=== PATIENT | male | born 1955 | race Caucasian/White ===

== ENCOUNTER 2021-10-27 09:25 | Emergency (ER) | payer MEDICARE, OTHER ==
[~2021-10-27] VITALS: Ht 177.8 cm; Wt 75.0 kg
[2021-10-27 09:31] VITALS: TEMP 97.3
[2021-10-27 10:00] VITALS: PULSE 55
[2021-10-27 10:40] VITALS: BP 153/87
== END 2021-10-27 10:42 | disposition home or self-care (01) ==
LOC: COL.ER 09:25
DX: S61.441A Puncture wound with foreign body of right hand, initial encounter (principal); W26.0XXA Contact with knife, initial encounter

== ENCOUNTER → 2021-11-09 | Outpatient (CLI) | payer MEDICARE, OTHER ==
[2021-11-09 14:55] VITALS: BP 184/91; PULSE 67; TEMP 96
== END ==
LOC: COL.ER 14:48
DX: Z48.02 Encounter for removal of sutures (principal)

== ENCOUNTER 2023-10-25 06:53 | Day surgery (SDC) | payer MEDICARE, OTHER ==
[~2023-10-25] VITALS: Ht 177.8 cm; Wt 73.2 kg
[2023-10-25] VITALS (18 sets, daily range): BP systolic 85–175; BP diastolic 53–111; PULSE 46–77; TEMP 97.8–98.4
[~2023-10-25 06:53] MED LIST: NORCO 325 MG-51 TAB PO; PRINIVIL5 MG PO; PROSVENT PO; WELLBUTRIN SR150 M1 PO
[2023-10-25] MEDS ORDERED: 1/2 NS 1,000 ML IV SCH ×2 (07:45→11:45)
[2023-10-25 08:12] LABS: CALCIUM 10.1 mg/dL (8.4-10.2); CREATININE, serum 1.11 mg/dL (0.72-1.25); HEMATOCRIT 42.5 % (42.0-52.0); HEMOGLOBIN 14.3 g/dl (13.5-18.0); MEAN CELL VOLUME 85 fl (80.0-100.0); MEAN CORPUSCULAR HEMOGLOBIN 29 pg (27-31); MEAN CORPUSCULAR HGB CONC 34 g/dl (33.0-37.0); MEAN PLATELET VOLUME 9.4 fl (7.4-10.4); PLATELET COUNT 262 K/mm3 (130-400); POTASSIUM 4.2 mEq/L (3.5-4.5); RED BLOOD COUNT 5.02 M/mm3 (4.20-5.60); REDCELL DISTRIBUTION WIDTH-CV 13.2 % (11.5-14.5)
[2023-10-25] MEDS ORDERED: XANAX .25M0.25 MG/TA PO (08:16)
[2023-10-25] MEDS ORDERED: WELLBUTRIN SR150 M1 PO (08:17)
[2023-10-25] MEDS ORDERED: ZESTRIL 5MG5 MG PO (08:17)
[2023-10-25] MEDS ORDERED: PEPCID AC 10MG10 MG PO (08:18)
[2023-10-25] MEDS ORDERED: ASPIRIN 81M81 MG/TA2 PO (08:18)
[2023-10-25 08:20] LABS: INR 1.1 (0.8-3.0); PROTHROMBIN TIME 11.5 SECONDS (9.7-12.8)
[2023-10-25] MEDS ORDERED: NITROSTAT0.4 MG/TAB SL (08:20)
[2023-10-25 08:23] LABS: PARTIAL THROMBOPLASTIN TIME 33.4 SECONDS (26.0-37.0)
--- NOTE | 2023-10-25 09:12 | NUR ---
SEE MERGE FOR PROCEDURE DOCUMENTATION
[2023-10-25] MEDS ORDERED: Nitroglycerin 2% Topical Oint 1 GM UD TD SCH (09:22)
[2023-10-25] MEDS ORDERED: Heparin 1,000 UNITS/ML 10 ML Multi-Dose VIAL IV SCH (09:31)
[2023-10-25] MEDS ORDERED: Clopidogrel 300 MG DOSE (75 mg x 4 tabs) PO SCH (09:42)
[2023-10-25] MEDS ORDERED: niCARdipine (Cath Lab) 100 MCG/ML 10 ML VIAL IA SCH (09:54)
[2023-10-25] MEDS ORDERED: Midazolam 2 MG/2 ML VIAL IV SCH (09:54)
[2023-10-25] MEDS ORDERED: fentaNYL 50 MCG/ML 2 ML VIAL IV SCH (09:55)
--- NOTE | 2023-10-25 10:11 | NUR ---
Report received pt to transfer to inpt room.
[2023-10-25] MEDS ORDERED: Bivalirudin 250 MG in NS 50 ML IV SCH ×2 (10:36→10:55)
--- NOTE | 2023-10-25 10:36 | NUR ---
Initial visit; Patient and his ; Janae thanked Special Library Librarian for looking in on him prior to his 'Procedure" and offering prayer for a rapid and thorough recovery from his Heart Catherization. spoke of his Physician and made sure he knew he was in very good hands and that he would do well.
[2023-10-25] MEDS ORDERED: Iohexol 350 - 100 ML VIAL INCOR ONE (11:32)
[2023-10-25] MEDS ORDERED: ALPRAZolam 0.25 MG TAB PO PRN (12:00)
[2023-10-25] MEDS ORDERED: Temazepam 15 MG CAP PO PRN (12:00)
--- NOTE | 2023-10-25 12:07 | NUR ---
PT ALERT AND ORIENTED, REPORTS "FLOATERS" IN MY EYES. DENIES PAIN. RIGHT FOREARM NOTED TO HAVE SMALL COMPRESSABLE AREA, PRESSURE HELD AND COBAN PLACED PER ENZO MOYER FRAME ALIGNER. PROVIDER MADE AWARE. PATIENT TRANSFERRED TO BED AND TRANSPORTED TO [facility]. SPOUSE BROUGHT TO BEDSIDE. VITAL SIGNS TAKEN ON ARRIVAL, HYPERTENSION NOTED PER BASELINE. TRANSFER OF CARE TO JANIYA ELLIS RN. PATIENT PROVIDED CALL LIGHT AND URINAL, BED TO LOWEST POSITION, X3 BEDRAILS IN PLACE. ANGIOMAX DRIP TO CONTINUE UNTIL CURRENT BAG COMPLETE.
[2023-10-25] MEDS ORDERED: Famotidine 20 MG TAB PO PRN (12:15)
[2023-10-25] MEDS ORDERED: Docusate Sodium 100 MG CAP PO PRN (12:45)
--- NOTE | 2023-10-25 12:51 | NUR ---
Patient trasnferred from laboratory apparatus glass grinder to unit at approx 1145. Patient alert and oriented x4, denies pain. at bedside. BP elevated, but has been elevated since procedure per MAITE Scott. Right radial site is reddened and upper arm area is swollen, per report patient had a "knot" in the area and laboratory apparatus glass grinder staff wrapped arm in coban. CMS normal, no hematoma or bleeding noted. Patient requested to use urinal and was able to stand at bedside and use urinal with left hand. Stable on room air, tolerating water well. Call light within reach.
[2023-10-25] MEDS ORDERED: DOPamine/Dextrose 5%-Water 250 ML IV SCH (16:00)
[2023-10-25] MEDS ORDERED: 1/2 NS 500 ML IV SCH (16:45)
--- NOTE | 2023-10-25 18:26 | NUR ---
Patient called this nurse between 1530 and 1600 to notify this nurse that he did not feel well. Upon entering room patient was laying in bed with his fanning him, states he felt hot. Patient was cold and clammy to touch, BP noted to be 85/53 on vital signs machine that was cycling for post-op VS. medical csr called this nurse to notify of HR of 46 that was sustaining. Patient complained of light headedness and appeared pale. These symptoms occurred after all air was released from TR band to right radial site. Prior to releasing air from radial band patient was complaining of pain to site. CMS was consistently within normal limits. Small amount of blood noted to right radial site, 6cc of air re-inflated back into radial band. Dr. Price updated on patient's symptoms and 500ml bolus of 1/2 NS ordered as well as a dose of IV dopamine. Bolus administered and BP noted to increase gradually, HR increased to 50s. No further bleeding noted to right radial site. This nurse was clarifying medication administration policies for Dopamine with supervisor prop making, then when reassessing patient BP noted to have increased close to baseline in 140s/70s and HR was back to 60s. Dr. Price notified of change in VS and stated to not give Dopamine anymore due to VS stabilizing. Patient remained alert and oriented x4 throughout all of symptoms, bleeding to radial site stopped. After 40 min 6cc of air removed, no further bleeding noted when reassessing 10 minutes later. Band removed and bandaid applied to site.
--- NOTE | 2023-10-25 19:24 | NUR ---
SHIFT ASSESSMENT COMPLETE AT TIME OF TRANSFER FROM ASSOCIATE PROFESSOR OF PSYCHOLOGY AT 1147
[2023-10-25] MEDS ORDERED: Atorvastatin 80 MG TAB PO SCH (21:00)
[2023-10-26] VITALS: BP 119/59; PULSE 52; TEMP 97.9
--- NOTE | 2023-10-26 01:57 | NUR ---
PATIENT BRADYCARDIC AT 47BPM. ENTERED PATIENT ROOM, PATIENT SLEEPING AND WAS EASILY AROUSED. VS RECHECKED BP 107/69, PULSE 51 AND 02 AT 97 % ON RA. PATIENT DENIES CHEST PAIN OR SOA. RT RADIAL SITE DRESSING CDI AND DIST PULSE PALPABLE. APICAL PULSE 52 BPM.
[2023-10-26 03:56] VITALS: BP 123/78; PULSE 51; TEMP 97.9
[2023-10-26 04:45] LABS: BASO % 0.2 % (0.0-2.0); EOS # 0.2 K/mm3 (0.0-0.7); EOS % 2.1 % (0.0-4.0); GRAN # 5.9 K/mm3 (1.4-6.5); GRAN % 69.7 % (42.2-75.2); HEMATOCRIT 38.4 % (42.0-52.0); LYMPH # 1.4 K/mm3 (1.2-3.4); LYMPH % 16.3 % (20.0-51.0); MEAN CELL VOLUME 85 fl (80.0-100.0); MEAN CORPUSCULAR HEMOGLOBIN 29 pg (27-31); MEAN CORPUSCULAR HGB CONC 34 g/dl (33.0-37.0); MEAN PLATELET VOLUME 9.5 fl (7.4-10.4); MONO % 11.3 % (1.7-9.3); PLATELET COUNT 250 K/mm3 (130-400); RED BLOOD COUNT 4.53 M/mm3 (4.20-5.60); REDCELL DISTRIBUTION WIDTH-CV 13.2 % (11.5-14.5)
[2023-10-26 05:00] LABS: CREATININE, serum 1.06 mg/dL (0.72-1.25)
--- NOTE | 2023-10-26 06:41 | NUR ---
PATIENT SLEPT SOUNDLY THROUGHOUT THE NIGHT WITH NO EMERGENT STATUS CHANGES. PATIENT REMAINS SLIGHTLY BRADYCARDIC AT 56 BPM. DENIES CHEST PAIN OR SOA. STATES NO NEEDS AT THIS TIME.
[2023-10-26 07:13] VITALS: BP 129/77; PULSE 55; TEMP 97.9
[2023-10-26] MEDS ORDERED: Lisinopril 5 MG TAB PO SCH (09:00)
[2023-10-26] MEDS ORDERED: buPROPion SR (12-HR) 150 MG TAB PO SCH (09:00)
[2023-10-26] MEDS ORDERED: Clopidogrel 75 MG TAB PO SCH (09:00)
[2023-10-26 09:50] VITALS: BP_SYST 129
--- NOTE | 2023-10-26 09:50 | NUR ---
PT LAYING IN BED UPON ENTERING, AND DIETARY AT BEDSIDE. ASSESSMENT DONE, MEDS GIVEN. PHARMACY CALLED FOR ORDERED WELLBUTRIN SR NOT IN PYXIS. TOPROL HELD THIS MORNING PER CARDIOLOGY. PT DENIES PAIN. INT TO LEFT FOREARM PATENT. BANDAID REMOVED FROM RIGHT RADIAL SITE, NO BLEEDING NOTED. PT DENIES NEEDS. BED IN LOWEST POSITION, CALL LIGHT IN REACH.
[2023-10-26] MEDS ORDERED: LIPITOR 80MG80 MG PO (11:14)
[2023-10-26] MEDS ORDERED: PLAVIX 75MG TAB75 MG PO (11:14)
[2023-10-26] MEDS ORDERED: TOPROL XL 25MG25 MG PO (11:15)
[2023-10-26] MEDS ORDERED: EPA FISH OIL1 SGL PO (11:16)
[2023-10-26 11:29] VITALS: BP 127/77; PULSE 56; TEMP 97.3
--- NOTE | 2023-10-26 12:01 | NUR ---
Reviewed monitoring instructions for s/p radial heart catherization. Cleaning site with mild soap and water, pat dry. Discussed monitoring for redness, hot to touch, inflammation, or temperature >100.4. Discussed when to contact the physician for signs of symptoms of complications or CA. Also reviewed risk factors for heart disease. Covered applicable modifiable risk factors including the following: tobacco cessation, HTN, hyperlipidemia, diabetes, overweight/obesity, sedentary lifestyle, and stress/depression. Patient verbalized understanding. Referral sent to [facility] with patient's permission. Patient would like to attend f/u with [facility] cardiology prior to scheduling. Patient provided with depatment contact information and states he will call to schedule.
--- NOTE | 2023-10-26 12:10 | NUR ---
IV AND TELE REMOVED. PT GIVEN DISCHARGE INSTRUCTIONS AND VERBALIZED UNDERSTANDING. PT IN PERSONAL CLOTHES AND ESCORTED TO PERSONAL VEHICLE VIA WHEELCHAIR BY PCT
--- NOTE | 2023-10-26 13:19 | NUR ---
Follow-up visit; Patient doing well after being treated for complications yesterday along with undergoing a Heart Catherization. Lump Machine Operator wished him well, a thorough and rapid recovery as he leaves the hospital today. Patient and his thanked Lump Machine Operator for stopping again.
== END 2023-10-26 12:30 | disposition home or self-care (01) ==
LOC: COL.CAR 06:53 → MEDICAL 11:45 → COL.CAR 10-26 12:30 → MEDICAL 10-26 12:30
PROVIDERS: Internal Medicine Cardiovascular Disease
DX: I25.10 Atherosclerotic heart disease of native coronary artery without angina pectoris (principal); Z95.5 Presence of coronary angioplasty implant and graft
CPT/HCPCS: OP; C1725; C1769; C1874; C1887; C9600; J0583; J1644; J2250; J2404; J3010; Q9967

== ENCOUNTER 2024-01-22 08:23 | Observation (INO) | payer MEDICARE, OTHER ==
[2024-01-22] VITALS (164 sets, daily range): BP systolic 106–173; BP diastolic 61–88; PULSE 49–72; TEMP 98–98.7; O2SAT 96–100
[~2024-01-22] VITALS: Ht 180.3 cm; Wt 73.7 kg
[~2024-01-22 08:23] MED LIST changes: +ASPIRIN 81M81 MG/TA2 PO; +EPA FISH OIL1 SGL PO; +LIPITOR 80MG80 MG PO; +NITROSTAT0.4 MG/TAB SL; +PEPCID AC 10MG10 MG PO; +PLAVIX 75MG TAB75 MG PO; +TOPROL XL 25MG25 MG PO; +XANAX .25M0.25 MG/TA PO; +ZESTRIL 5MG5 MG PO
[2024-01-22 08:59] LABS: BASO % 0.3 % (0.0-2.0); EOS # 0.2 K/mm3 (0.0-0.7); EOS % 3.3 % (0.0-4.0); GRAN # 3.1 K/mm3 (1.4-6.5); GRAN % 44.4 % (42.2-75.2); HEMATOCRIT 41.5 % (42.0-52.0); LYMPH # 2.7 K/mm3 (1.2-3.4); LYMPH % 38.5 % (20.0-51.0); MEAN CELL VOLUME 88 fl (80.0-100.0); MEAN CORPUSCULAR HEMOGLOBIN 27 pg (27-31); MEAN CORPUSCULAR HGB CONC 31 g/dl (33.0-37.0); MEAN PLATELET VOLUME 9.7 fl (7.4-10.4); MONO # 0.9 K/mm3 (0.1-0.6); MONO % 13.2 % (1.7-9.3); PLATELET COUNT 284 K/mm3 (130-400); RED BLOOD COUNT 4.74 M/mm3 (4.20-5.60); REDCELL DISTRIBUTION WIDTH-CV 14.4 % (11.5-14.5)
[2024-01-22 09:12] LABS: ALBUMIN 3.8 g/dL (3.4-4.8); CALCIUM 8.8 mg/dL (8.4-10.2); CREATININE, serum 1.16 mg/dL (0.72-1.25); POTASSIUM 4.5 mEq/L (3.5-4.5); TOTAL PROTEIN 6.4 g/dl (6.2-8.1)
[2024-01-22 09:38] LABS: BILIRUBIN,TOTAL 0.6 mg/dL (0.2-1.2)
[2024-01-22 09:47] LABS: TROPONIN-I 0.097 ng/mL (0.00-0.033)
[2024-01-22] MEDS ORDERED: 1/2 NS 1,000 ML IV SCH ×2 (10:15→17:15)
[2024-01-22] MEDS ORDERED: Acetaminophen 325 MG TAB PO PRN (11:00)
[2024-01-22] MEDS ORDERED: LR 1,000 ML IV SCH (11:00)
[2024-01-22] MEDS ORDERED: Polyethylene Glycol 3350 17 GM PDS PO PRN (11:00)
[2024-01-22] MEDS ORDERED: Ondansetron 4 MG/2 ML VIAL IV PRN (11:00)
[2024-01-22] MEDS ORDERED: Docusate Sodium 100 MG CAP PO PRN (11:00)
[2024-01-22] MEDS ORDERED: hydrALAZINE 20 MG/ML 1 ML VIAL IV PRN (11:15)
[2024-01-22] MEDS ORDERED: Nitroglycerin 2% Topical Oint 1 GM UD TD SCH (13:22)
[2024-01-22] MEDS ORDERED: ALPRAZolam 0.5 MG TAB PO PRN (14:15)
[2024-01-22] MEDS ORDERED: Bivalirudin 250 MG in NS 50 ML IV SCH ×2 (15:01→15:38)
[2024-01-22] MEDS ORDERED: Midazolam 2 MG/2 ML VIAL IV SCH (15:02)
[2024-01-22] MEDS ORDERED: fentaNYL 50 MCG/ML 2 ML VIAL IV SCH (15:03)
[2024-01-22] MEDS ORDERED: niCARdipine (Cath Lab) 100 MCG/ML 10 ML VIAL INCOR SCH (15:12)
[2024-01-22] MEDS ORDERED: Nitroglycerin 100 MCG/ML (Cath Lab) 10 ML VIAL IA SCH (15:13)
[2024-01-22] MEDS ORDERED: Iohexol 350 - 100 ML VIAL IA ONE (15:14)
[2024-01-22] MEDS ORDERED: Ticagrelor 90 MG TAB PO SCH ×2 (15:21→21:00)
[2024-01-22] MEDS ORDERED: Heparin 5,000 UNITS/ML 1 ML VIAL SQ SCH (16:00)
--- NOTE | 2024-01-22 17:33 | NUR ---
PT ARRIVED FROM OIL WINTERIZER WITH OIL WINTERIZER RN. UPPON SITE CHECK SITE NOTED TO BE ACTIVLY BLEEDING. MANUAL COMPRESSION APPLIED BY OIL WINTERIZER STAFF FOR 20 MIN UNTILL BLEEDING STOPPED.
--- NOTE | 2024-01-22 17:37 | NUR ---
SITE STILL BLEEDING CATHLAB STAFF HOLDING PRESSURE
--- NOTE | 2024-01-22 17:48 | NUR ---
ACTIVE BLEEDINGT STOPPED AND NEW BANDAGE APPLIED SCANT BLOOD ON NEW BANDAGE
[2024-01-22] MEDS ORDERED: amLODIPine 5 MG TAB PO SCH (21:00)
[2024-01-22] MEDS ORDERED: Atorvastatin 80 MG TAB PO SCH (21:00)
--- NOTE | 2024-01-22 23:50 | NUR ---
PATIENT A&OX4, PLEASANT, AND COOPERATIVE WITH TREATMENT PLAN. PATIENTS FEMORAL ACCESS SITE HAD BLOODY DRAINAGE ON THE GAUZE. THIS WAS MARKED WITH SHAY AND RECHECKED 45 MINS LATER. DRAINAGE CONTINUED AND THE STAINING HAD PASSED THE ORIGINAL WYATT. PRESSURE HELD AT SITE FOR 20 MINS AND REMARKED. AT THIS TIME THE DRAINAGE HAS NOT GONE PAST THE 2ND WYATT THAT WAS MADE. PATIENT IN BED CALL LIGHT IN REACH
[2024-01-23] VITALS (95 sets, daily range): BP systolic 113–143; BP diastolic 61–82; PULSE 54–66; TEMP 98–98.1; O2SAT 87–100
[2024-01-23 04:54] LABS: BASO % 0.1 % (0.0-2.0); EOS # 0.1 K/mm3 (0.0-0.7); EOS % 1.3 % (0.0-4.0); GRAN # 5.2 K/mm3 (1.4-6.5); GRAN % 69.8 % (42.2-75.2); HEMOGLOBIN 11.1 g/dl (13.5-18.0); LYMPH # 1.2 K/mm3 (1.2-3.4); LYMPH % 15.8 % (20.0-51.0); MEAN CORPUSCULAR HEMOGLOBIN 28 pg (27-31); MEAN CORPUSCULAR HGB CONC 33 g/dl (33.0-37.0); MEAN PLATELET VOLUME 9.4 fl (7.4-10.4); MONO # 0.9 K/mm3 (0.1-0.6); MONO % 12.7 % (1.7-9.3); PLATELET COUNT 204 K/mm3 (130-400); REDCELL DISTRIBUTION WIDTH-CV 14.4 % (11.5-14.5)
[2024-01-23 04:56] LABS: HEMATOCRIT 33.3 % (42.0-52.0); MEAN CELL VOLUME 83 fl (80.0-100.0)
[2024-01-23 05:17] LABS: CALCIUM 8.3 mg/dL (8.4-10.2); CREATININE, serum 0.93 mg/dL (0.72-1.25)
--- NOTE | 2024-01-23 07:55 | NUR ---
PT IS AWAKE IN THE BED ON HIS PHONE. PONCHO AND Johnny CHECKED THE PATIENTS GROIN SITE AND THE BLOOD HAS NOT ADVANCED PASSED THE LINE DRAWN ON THE DRESSING FROM THE PREVIOUS EVENING. HE IS ALERT AND ORIENTED. HE HAS BEEN GETTING UP TO USE THE TOILET TWICE THIS AM. NO OXYGEN IN PLACE. HE WAS GIVEN THE PHONE SO HE CAN ORDER HIS BREAKFAST. HE HAS ONE IV IN PLACE WITH FLUIDS INFUSING. NO PLAIN COMPLAINTS AT THIS TIME.
[2024-01-23] MEDS ORDERED: buPROPion SR (12-HR) 150 MG TAB PO SCH (09:00)
[2024-01-23] MEDS ORDERED: Pantoprazole 40 MG in NS 10 ML IV SCH (09:00)
[2024-01-23] MEDS ORDERED: Lisinopril 5 MG TAB PO SCH (09:00)
[2024-01-23] MEDS ORDERED: Omega-3 Fatty Acid Esters (OTC) 1,000 MG CAP PO SCH (09:00)
[2024-01-23] MEDS ORDERED: Clopidogrel 75 MG TAB PO SCH (09:00)
--- NOTE | 2024-01-23 10:07 | NUR ---
Metal Bed Assembler met with patient to discuss discharge planning. Patient lives in [place] with his spouse, Janae (ph#[phone]) who is at bedside. Patient sees Dr. Sandoval for primary care and gets medications from [facility] with no difficulties at this time. Patient does not use any DME and is independent with ADLS. Patient reported he has DPOA-HC completed and located at [facility]. SW contacted JA Veliz at [facility] and secured a copy which was placed on patient's chart. DPOA-HC designates his , Jewell "Janae". Discharge Plan: Home
[2024-01-23] MEDS ORDERED: BRILINTA90 MG PO (11:25)
[2024-01-23] MEDS ORDERED: NORVASC 5MG5 MG/TAB PO (11:26)
[2024-01-23] MEDS ORDERED: TOPROL XL 25MG25 MG PO (11:30)
--- NOTE | 2024-01-23 12:25 | NUR ---
Reviewed returning to cardiac rehab - Dr. Price has requested 2 week pause. Staff will check into insurance coverage and 'restarting' to have a few more sessions to monitor patient during exercise. Patient verbalized understanding. Staff will call in approx 1 week to check in and schedule return.
--- NOTE | 2024-01-23 12:42 | NUR ---
DISCUSSED DISCHARGE PAPERWORK WITH THE PATIENT AND HIS SPOUSE. HIS IV WAS DISCONTINUED. HE REMAINS ON ROOM AIR. HE IS VOIDING APPROPRIATELY. HE HAS NO COMPLAINTS OF PAIN. THE RIGHT GROIN SITE WAS VISUALIZED BY THIS NURSE AND THE PATIENT AND A CLEAN DRESSING WAS APPLIED. INSTRUCTIONS WERE GIVEN TO THE PATIENT AND HIS IN CASE THE SITE WOULD START TO REBLEED. HE WAS WHEELED OUT IN A WHEELCHAIR BY THIS NURSE TO HIS WAITING IN THE CAR.
== END 2024-01-23 12:29 | disposition home or self-care (01) ==
LOC: COL.ER 08:23 → ICU 11:01
PROVIDERS: Personal Emergency Response Attendant; ADMIT Internal Medicine
DX: I47.21 Torsades de pointes (principal); I46.9 Cardiac arrest, cause unspecified; T82.867A Thrombosis due to cardiac prosthetic devices, implants and grafts, initial encounter; R79.89 Other specified abnormal findings of blood chemistry; S01.81XA Laceration without foreign body of other part of head, initial encounter; R55 Syncope and collapse; I10 Essential (primary) hypertension; E78.5 Hyperlipidemia, unspecified; F41.9 Anxiety disorder, unspecified; F32.A Depression, unspecified; I21.4 Non-ST elevation (NSTEMI) myocardial infarction; Z95.5 Presence of coronary angioplasty implant and graft; Z79.82 Long term (current) use of aspirin; Z79.02 Long term (current) use of antithrombotics/antiplatelets
CPT/HCPCS: G0378; J0583; J1644; J2250; J2404; J2470; J3010; Q9967

== ENCOUNTER 2024-02-09 13:42 | Outpatient (RCR) | payer MEDICARE, OTHER ==
[2024-01-22 16:21] VITALS: O2SAT 97
[2024-01-27 11:21] VITALS: BP 161/88; PULSE 69; TEMP 98.1
[~2024-02-09 13:42] MED LIST changes: +BRILINTA90 MG PO; +NORVASC 5MG5 MG/TAB PO
[2024-03-01] MEDS ORDERED: LIPITOR 80MG80 MG PO (10:46)
[2024-03-01] MEDS ORDERED: BRILINTA90 MG PO (10:46)
[2024-03-01] MEDS ORDERED: TOPROL XL 25MG25 MG PO (10:46)
[2024-03-01] MEDS ORDERED: NORVASC 5MG5 MG/TAB PO (10:46)
[2024-03-01] MEDS ORDERED: ELIQUIS 5MG PO (10:47)
[2024-03-01] MEDS ORDERED: EPA FISH OIL1 SGL PO (10:47)
[2024-03-01] MEDS ORDERED: PROTONIX 40MG T40 MG PO (10:48)
== END 2024-03-07 | disposition home or self-care (01) ==
LOC: COL.CR
DX: Z02.89 Encounter for other administrative examinations (principal)

== ENCOUNTER 2024-02-12 10:18 | Emergency (ER) | payer MEDICARE, OTHER ==
[~2024-02-12] VITALS: Ht 177.8 cm; Wt 71.4 kg
[2024-02-12 10:40] LABS: BASO % 0.4 % (0.0-2.0); EOS # 0.1 K/mm3 (0.0-0.7); EOS % 1.5 % (0.0-4.0); GRAN # 5.9 K/mm3 (1.4-6.5); GRAN % 71.6 % (42.2-75.2); LYMPH # 1.3 K/mm3 (1.2-3.4); LYMPH % 15.3 % (20.0-51.0); MEAN CELL VOLUME 88 fl (80.0-100.0); MEAN CORPUSCULAR HGB CONC 31 g/dl (33.0-37.0); MEAN PLATELET VOLUME 9.4 fl (7.4-10.4); MONO # 0.9 K/mm3 (0.1-0.6); MONO % 10.6 % (1.7-9.3); PLATELET COUNT 331 K/mm3 (130-400); RED BLOOD COUNT 3.41 M/mm3 (4.20-5.60)
[2024-02-12 10:43] LABS: HEMOGLOBIN 9.4 g/dl (13.5-18.0); MEAN CORPUSCULAR HEMOGLOBIN 28 pg (27-31)
[2024-02-12 10:46] LABS: INR 2.5 (0.8-3.0); PROTHROMBIN TIME 26.4 SECONDS (9.7-12.8)
[2024-02-12 11:10] LABS: ALBUMIN 2.7 g/dL (3.4-4.8); BILIRUBIN,TOTAL 0.4 mg/dL (0.2-1.2); CALCIUM 7.7 mg/dL (8.4-10.2); CREATININE, serum 0.96 mg/dL (0.72-1.25); POTASSIUM 4.9 mEq/L (3.5-4.5); TOTAL PROTEIN 4.6 g/dl (6.2-8.1)
[2024-02-12] MEDS ORDERED: Prothrombin Complex Human 2,000 UNITS in Water For Injection,Sterile 80 ML IV ONE (11:45)
[2024-02-12] MEDS ORDERED: NS 1,000 ML IV ONE (11:45)
[2024-02-12] MEDS ORDERED: Pantoprazole 40 MG in NS 10 ML IV ONE (11:45)
[2024-02-12 14:14] VITALS: BP 99/56; PULSE 64; TEMP 97.6
[2024-02-12 14:29] VITALS: BP 127/76; PULSE 67; TEMP 97.9
[2024-02-12 16:48] VITALS: BP 125/73; PULSE 71; TEMP 98.6
== END 2024-02-12 16:48 | disposition short-term general hospital (02) ==
LOC: COL.ER 10:18
PROVIDERS: Personal Emergency Response Attendant
DX: R55 Syncope and collapse (principal); K92.0 Hematemesis; Z79.01 Long term (current) use of anticoagulants; Z79.82 Long term (current) use of aspirin; Z79.02 Long term (current) use of antithrombotics/antiplatelets
CPT/HCPCS: J2470; J7030; J7168; P9016

== ENCOUNTER 2024-03-11 10:00 | Outpatient (RCR) | payer MEDICARE, OTHER ==
[2024-03-08 10:13] VITALS: BP 146/76; PULSE 58; TEMP 98.4
[~2024-03-11] VITALS: Ht 177.8 cm; Wt 75.5 kg
[~2024-03-11 10:00] MED LIST changes: +ELIQUIS 5MG PO; +Iron Sucrose 200 MG in NS 100 ML Over 15 minutes (5 doses/14 Days) IV SCH; +PROTONIX 40MG T40 MG PO
[2024-03-11 10:17] VITALS: BP 137/57; PULSE 63; TEMP 98.1
--- NOTE | 2024-03-11 10:46 | NUR ---
Pt tolerated infusion without issue. IV DC'd, site wrapped with coban. He exits dept with steady gait. Free of complaints at discharge.
== END 2024-03-11 10:47 | disposition home or self-care (01) ==
LOC: EUO 10:00
DX: D50.0 Iron deficiency anemia secondary to blood loss (chronic) (principal)
CPT/HCPCS: J1756